=== PATIENT | male | born 1960 | race Caucasian/White ===

== ENCOUNTER 2018-01-14 08:14 | Day surgery (SDC) | payer BC ==
[~2018-01-14 08:14] MED LIST: ACETAMINOPHEN 325 MG TABLET PO PRN; BUPIVACAINE HCL 0.25 % INJ/PF (2.5 MG/1 ML) 30 ML VIAL ONE; BUPIVACAINE INJ/PF LIPOSOME/PF 266 MG/20 ML SDV ONE; CEFAZOLIN 1 GM/D5W RTU 1 GM/50 ML RTUPB IV PRN; RINGERS SOLUTION,LACTATED 1,000 ML IV PRN
[2018-01-14 09:39] LABS: HEMATOCRIT 41.3 % (37.9-51.0); HEMOGLOBIN 14.4 g/dL (13.5-17.0); MEAN CORPUSCULAR HEMOGLOBIN 31.8 pg (27.0-33.4); MEAN CORPUSCULAR HGB CONC 34.9 g/dL (32.0-36.0); MEAN CORPUSCULAR VOLUME 91 fl (80-97); PLATELET COUNT 328 10^3/uL (150-450); RED BLOOD COUNT 4.53 10^6/uL (4.35-5.55); RED CELL DISTRIBUTION WIDTH 13.2 % (11.5-14.0)
[2018-01-14] MEDS ORDERED: MIDAZOLAM 2 MG/2 ML INJ ONE (11:06)
[2018-01-14] MEDS ORDERED: ONDANSETRON HCL INJ/PF 4 MG/2 ML SDV ONE (11:06)
[2018-01-14] MEDS ORDERED: DEXAMETHASONE SOD PHOSPHATE INJ 4 MG/1 ML VIAL ONE (11:06)
[2018-01-14] MEDS ORDERED: FENTANYL CITRATE INJ/PF 250 MCG/5 ML AMPULE ONE (11:06)
[2018-01-14] MEDS ORDERED: PROPOFOL INJ 200 MG/20 ML VIAL IV ONE (11:06)
[2018-01-14] MEDS ORDERED: ACETAMINOPHEN 1,000 MG/100 ML RTUPB IV ONE (11:07)
[2018-01-14] MEDS ORDERED: FENTANYL CITRATE INJ/PF 100 MCG/2 ML AMPUL IV PRN ×3 (11:57)
[2018-01-14] MEDS ORDERED: DIPHENHYDRAMINE HCL 50 MG/ML VIAL IV PRN (11:57)
[2018-01-14] MEDS ORDERED: PROMETHAZINE HCL INJ 25 MG/1 ML VIAL IV PRN (11:57)
[2018-01-14] MEDS ORDERED: MEPERIDINE HCL/PF INJ 25 MG/1 ML DISP.SYRIN IV PRN (11:57)
--- NOTE | 2018-01-14 13:16 | EKG REPORT ---
SEVERITY:- ABNORMAL ECG - SINUS RHYTHM LOW VOLTAGE IN FRONTAL LEADS CONSIDER OLD ANTEROSEPTAL NE. : Confirmed by: Andrae Bean MD 14-Jan-2018 13:15:46
--- NOTE | 2018-01-14 13:35 | Operative Report ---
Operative Report DATE OF SURGERY: 01/14/18 PREOPERATIVE DIAGNOSIS: Left inguinal hernia moderate size, reducible POSTOPERATIVE DIAGNOSIS: Same indirect inguinal hernia with large left cord lipoma OPERATION: 1. Open left inguinal exploration. 2. Excision of large cord lipoma. 3. Repair of left inguinal hernia with large [facility] Prolene hernia system SURGEON: KENDRICK SILVA 1ST MANUFACTURING ASSOCIATE: PETER MUELLER ANESTHESIA: GA TISSUE REMOVED OR ALTERED: Lipoma of cord; portion of left hernia sac COMPLICATIONS: None ESTIMATED BLOOD LOSS: Minimal INTRAOPERATIVE FINDINGS: See below PROCEDURE: Patient was seen in the preop holding area to the left inguinal area was marked. He was then taken to the main operating room where general anesthesia was induced. Arms were abducted, left inguinal area and genitalia prepped and draped in sterile fashion. Surgical plan and surgical timeout conducted. Plans were discussed for open left inguinal exploration. The skin was marked for the intended procedure and anesthetized with 1% lidocaine plain. A standard left inguinal herniorrhaphy incision was made over the inguinal canal. Subcutaneous tissue, Taj's fascia divided with electrocautery. The fatty tissue overlying the external oblique aponeurosis was swept aside, the fascia and the cystitis with local anesthetic and the external oblique aponeurosis divided along the direction of its fibers. Superior and inferior fascial flaps were elevated. The left ilioinguinal nerve was identified and preserved throughout the dissection. The contents of the inguinal canal were investigated. The findings were significant for a large cord lipoma coming off laterally and anteriorly, a moderate sized indirect left inguinal hernia sac, and an adjacent lipomatous extension of the floor of the inguinal canal lateral to the inferior epigastric vessels. The floor the inguinal canal medially was intact but patulous. We proceeded to excise the majority of the large cord lipoma using a combination of blunt and electrocautery dissection. This pedicle was tied off with a 2-0 Vicryl suture. The sac was dissected free of surrounding structures and opened. It contained a portion of the wall of the sigmoid colon and this was dissected carefully off of the peritoneal lining, and the sigmoid colon reduced in the peritoneal cavity. The hernia sac was oversewn with a 2-0 Vicryl suture. A small fragment of the redundant sac was excised and sent to pathology. The previously described lipomatous extension was reduced along with the tied off peritoneal stump into the retroperitoneal space. We now bluntly dissected the retroperitoneum off of the intra-abdominal wall using a combination of finger dissection. We now brought onto the field a non- large nightly Prolene hernia system mesh, deployed the inner component into the retroperitoneal space displaying it out nicely. We then trimmed the external component to the appropriate configuration and sewed it with approximately 8-0 PDS sutures in a circumferential fashion to the conjoined tendon lacunar ligament and shelving edge of the inguinal ligament. An upside down U was cut in the mesh at the 530 position to accommodate the cord structures. Of note the genitofemoral nerve was slightly from the cord structures to facilitate its preservation and repositioning from the mesh. The reconstructed inguinal floor was felt to be successful. There was no evidence of mechanical bleeding. External oblique aponeurosis closed long direction of its fibers, Taj's fascia closed with 3-0 Vicryl skin closed with 2-0 Vicryl and 20 cc of full-strength Exparel injected into the surrounding subcutaneous tissues. The incision was closed with BioGlue. Patient tolerated the procedure well, extubated, taken to recovery in stable condition The physician neurosurgical physician assistant, Ms. Strong, provided assistance during this case by: Assisting with retracting tissue, instillation of local anesthesia and closure of skin incisions.
--- NOTE | 2018-01-14 13:39 | Discharge Summary ---
Discharge Summary (SDC) - Discharge Final Diagnosis: Left inguinal hernia, indirect Date of Surgery: 01/14/18 Discharge Date: 01/14/18 Condition: Good Treatment or Instructions: No heavy lifting bending pushing or heaving; regular diet; encouraged to take stool softener twice daily; prescription on chart. Return to [facility] to follow-up with physician assistant terminal manager in 1-2 weeks. Referrals: KENDRICK SILVA MD [ACTIVE STAFF] - Discharge Diet: Regular Discharge Activity: Activity As Tolerated Home Care Assistance: None Needed Report the Following to Your Physician Immediately: Shortness of Breath, Increase in Pain, Fever over 101 Degrees
[2018-01-14] MEDS: FENTANYL CITRATE INJ/PF 100 MCG/2 ML AMPUL ONE ×2 (13:45→13:50)
[2018-01-14] MEDS ORDERED: OXYCODONE-ACETAMINOPHEN 5-325 MG TABLET PO PRN (13:57)
[2018-01-14] MEDS ORDERED: MORPHINE SULFATE 10 MG/ML INJ IV PRN (13:57)
[2018-01-14] MEDS ORDERED: EPHEDRINE SULFATE INJ 50 MG/1 ML AMPULE ONE (14:25)
[2018-01-14] MEDS ORDERED: OXYCODONE-ACETAMINOPHEN 5-325 MG TABLET ONE (14:36)
[2018-01-14 15:30] VITALS: BP 145/91
[2018-01-14] MEDS ORDERED: ROCURONIUM BROMIDE INJ 50 MG/5 ML VIAL IV ONE (20:12)
[2018-01-14] MEDS ORDERED: SUCCINYLCHOLINE CHLORIDE INJ 200 MG/10 ML VIAL ONE (20:12)
== END 2018-01-14 15:49 | disposition home or self-care (01) ==
LOC: OROUT 08:14
PROVIDERS: ATTEND Surgery
DX: K40.90 Unilateral inguinal hernia, without obstruction or gangrene, not specified as recurrent (principal); D17.6 Benign lipomatous neoplasm of spermatic cord; I10 Essential (primary) hypertension; E78.00 Pure hypercholesterolemia, unspecified; G40.909 Epilepsy, unspecified, not intractable, without status epilepticus; K44.9 Diaphragmatic hernia without obstruction or gangrene; Z88.8 Allergy status to other drugs, medicaments and biological substances; Z79.899 Other long term (current) drug therapy
CPT/HCPCS: 36415; 85027; 88302 ×2; 88304 ×2; 93005; 93010; 49505; C1781; J2250; J0690; J3490 ×2; J1100; J3010 ×2; J0330; J2405; J2704; J0131; C9290; 830